=== PATIENT | male | born 1930 | race Asian ===

== ENCOUNTER 2019-09-16 14:13 | Emergency (ER) | payer MEDICARE, OTHER ==
[~2019-09-16] VITALS: Ht 167.6 cm; Wt 72.0 kg
[2019-09-16] MEDS ORDERED: GABA-529 PO (16:07)
[2019-09-16] MEDS ORDERED: MEMA10TA11 PO (16:07)
[2019-09-16] MEDS ORDERED: DONE5TAB5 PO (16:07)
[2019-09-16] MEDS ORDERED: LORA-999 PO (16:07)
[2019-09-16] MEDS ORDERED: FLUORESCEIN SODIUM 1 MG STRIP OD ONE (16:15)
[2019-09-16] MEDS ORDERED: DONE10TA8 PO (16:16)
[2019-09-16] MEDS ORDERED: BACITRACIN 0.9 GM PACKET OINTMENT TP ONE (16:30)
[2019-09-16 17:00] VITALS: BP 139/76
== END 2019-09-16 17:40 | disposition home or self-care (01) ==
LOC: EMS 14:14
DX: S01.412A Laceration without foreign body of left cheek and temporomandibular area, initial encounter (principal); S01.21XA Laceration without foreign body of nose, initial encounter; S01.81XA Laceration without foreign body of other part of head, initial encounter; E11.9 Type 2 diabetes mellitus without complications; E78.00 Pure hypercholesterolemia, unspecified; E03.9 Hypothyroidism, unspecified; I10 Essential (primary) hypertension; F41.9 Anxiety disorder, unspecified; F03.90 Unspecified dementia, unspecified severity, without behavioral disturbance, psychotic disturbance, mood disturbance, and anxiety; Z85.46 Personal history of malignant neoplasm of prostate; Z98.890 Other specified postprocedural states; Y04.0XXA Assault by unarmed brawl or fight, initial encounter; Y93.01 Activity, walking, marching and hiking; Y92.121 Bathroom in nursing home as the place of occurrence of the external cause; Y99.8 Other external cause status